=== PATIENT | female | born 1950 | race Caucasian/White ===

== ENCOUNTER 2023-08-11 06:27 | Day surgery (SDC) | payer MEDICARE, SELFPAY ==
--- NOTE | 2023-08-11 06:02 | P.HP_ITS ---
History of Present Illness History of Present Illness Chief complaint: [facility] [place] Narrative: 73 female with diabetes and neuropathy is scheduled to undergo right hammertoes 3 and 4 correction and left chronic diabetic ulcer debridement with application of skin substitute. Patient had a recurrently history of pressure sores to the tip of right lesser toes due to the deformity. After healing the most recent right third toe wound via local wound care and off-loading, patient asked to straighten out the toes to prevent repeated incidence. In addition, patient has a small open wound on the inner aspect of left third toe that was discovered in late May. MRI was negative for bone infection. Patient denies recent change to medial history. Patient denies n/v/f/c/sob/cp. [facility] Medical History (Updated 08/05/23 @ 12:09 by Jeannie Salmon RN) Type 2 diabetes mellitus with foot ulcer Neuropathy Diabetes Arthritis Social History Smoking Status: Never smoker Meds Home Medications and Allergies Home Medications Medication Instructions Recorded Confirmed Type atorvastatin 20 mg tablet 20 mg PO DAILY 08/05/23 08/05/23 History gabapentin 300 mg capsule 300 mg PO 08/05/23 History glimepiride 1 mg tablet 1 mg PO 08/05/23 History metformin 500 mg tablet 500 mg PO 08/05/23 History pantoprazole 40 mg tablet,delayed 40 mg PO 08/05/23 History release Allergies Allergy/AdvReac Type Severity Reaction Status Date / Time furosemide [From Lasix] Allergy Verified 08/05/23 12:09 Review of Systems Review of Systems Narrative: Negative except as mentioned in HPI. Exam Skin Other: Left third toe: full-thickness down to exposed healthy tendon, tunneling, localized erythema and edema, and no malodor. 0.3 x 0.3 x 0.3 cm. Extrem Other: Right foot: flexible hammertoes 2 and 5 and semi-rigid hammertoes 3 and 4. Assessment & Plan Assessment & Plan narrative: 1. Right foot hammertoes 3 and 4. 2. Diabetic ulcer to left toe 3, down to tendon. Patient seen and evaluated. Surgical plan: right hammertoes 3 and 4 correction and left foot skin substitute application. Risks and benefits of the procedure discussed with all questions answered to patient's satisfaction. Reviewed potential complications that may include but not limited to the following: DVT, failure to resolve all symptoms, infection, nerve injury, bleeding, recurrence, or wound. All questions answered to patient's satisfaction with no guarantees made. Patient verbalized understanding and agreed with surgical plan. Patient meets the necessary requirement for a wheelchair due to NWB status after surgery, especially with diabetic neruopathy and collapsed arch in which a cane or walker is deemed insufficient. RTC for post-op.
[2023-08-11 07:16] VITALS: BMI 33.7
[2023-08-11] MEDS: LACTATED RINGERS 1,000 ML 100 ML IV (07:24)
[2023-08-11 07:28] VITALS: BP 130/80; PULSE 87; RESP 18; TEMP 36.2; O2SAT 96
--- NOTE | 2023-08-11 07:50 | PM.PREOP ---
Pre-operative Note Interval Note History & Physical reviewed/Exam performed by Physician: Yes Changes to H&P: No
[2023-08-11] MEDS: CEFAZOLIN 2 GM/100 ML PREMIX 100 ML IV (08:02)
[2023-08-11] MEDS: ACETAMINOPHEN IV 1,000 MG/100 ML VIAL 400 MG IV (08:04)
--- NOTE | 2023-08-11 08:24 | SUR.OPER ---
Supine on padded OR bed, head on pillow, arms secured on padded arm boards at <90 degrees abduction, legs uncrossed, safety belt at thigh, bump under right hip.
[2023-08-11] MEDS: LIDOCAINE 1% 20 ML INJ (08:51)
[2023-08-11 10:25] VITALS: BP 125/65; PULSE 100; RESP 16; TEMP 36.2; O2SAT 94
[2023-08-11 10:38] VITALS: BP 127/67; PULSE 93; RESP 16; O2SAT 96
--- NOTE | 2023-08-12 08:27 | PM.OP.1 ---
Operative Date/Time/Diagnoses Date of procedure: 08/11/23 Pre-op diagnosis: 1. Right hammertoes 3 and 4 Post-op diagnosis: same Procedure & Clinicians Procedure: 1. Right hammertoe arthrodesis, digits 3 and 4. Same procedure as scheduled: No (Left foot ulcer was healed and therefore, skin substitute was not applied. ) Indications: Rigid contracture of toes with recurrent diabetic ulcers from deformity. 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 Closure Type: primary Specimen(s): none sent Prosthetic devices, grafts, tissues, transplants, or devices: Hammertoe PEEK Fixation System. Applied: implant(s) Estimated Blood Loss (mL): 15 Blood products transfused: none Tourniquet time (min): 67 Procedure in detail: The patient was identified and brought into operating room via gurney and was transferred onto the operating room table. The patient was in supine position for the entire case. An 18 inch ankle tourniquet was applied over well-padded surface. Local block was administered using 10 cc of 1% lidocaine plain, and general anesthesia was administered. The right foot was then prepped and draped in the usual sterile fashion, followed by official time-out with the surgical team all in agreement. Attention was directed to the right forefoot. An Esmarch was used for exsanguination, and the tourniquet was elevated to 250 mmHg. A #15 blade was used to make a linear incision on toes 3 and 4. For both digits, dissection was carried out from skin down to the bone and joint at proximal interphalangeal and distal interphalangeal joints with transaction of extensor tendon. A sagittal saw was used to resect the head and base for each respective joint, and a curette was used the ensure removal of cartilage and subcnonrdral bone. Decision was made to shorten toe 3 via hemiphalangectomy of middle phalanx to maintain the parabola of foot. A PEEK implant was inserted per manufacture instructions, and the wire was retrograded across metatrsophalangeal joint for stabilization. Alignment was verified on fluoroscopy, and the K-wire was trimmed and capped. All procedure sites were irrigated using copious saline. The extensor tendons were repaired using 3-0 vicryl, and all incision sites were closed using 3-0 nylon. A total of 67 minutes were used on on the tourniquet. The right foot were cleaned and dried. Iodine soaked Adaptic was used over incision sites, followed by gauze, abdominal pad, conforming bandage, and elastic bandage wrap. Patient tolerated procedure without complication. Patient was transferred to PACU with all vitals stable. Post-operative Condition: stable Disposition: same day surgery Plan for aftercare: NWB and elevate above heart for surgical limb. Keep dressing clean, dry, and intact. Take medications as instructed. RTC as scheduled.
== END 2023-08-11 10:59 | disposition home or self-care (01) ==
PROVIDERS: Referring Provider Podiatrist Foot & Ankle Surgery; Visit Provider Podiatrist Foot & Ankle Surgery
PROC: (CPT 28285; principal; 2023-08-11 07:45)
PROC: (CPT 28285; 2023-08-11 07:45)
DX: M20.41 Other hammer toe(s) (acquired), right foot (principal)
CPT/HCPCS: 28285 ×2; 82962; J0136; J0690; J3010